=== PATIENT | male | born 1985 | race Caucasian/White ===

== ENCOUNTER 2016-09-11 18:52 | Emergency (ER) | payer OTHER ==
--- NOTE | ~2016-09-11 | CT4 ---
[facility] A Service of [facility] RADIOLOGY TEXT RESULTS PATIENT: KAMRAN SAMAYOA LOCATION: [facility] : 81 UNIT #: [id number] AGE: [address]: STIVEN MOREIRA APRN SEX: M ORDER DR: [id number] [facility] [address] [place], [place] [address] [id number] E MR#: [id number] Acc #: [id number] NAME: KAMRAN SAMAYOA : 1985 SEX: M STUDY DATE/TIME: 09/11/2016 20:24 UNIT: [facility] ROOM: STUDY DESCRIPTION: CT Abd and Pelv Wo Cont Attending Physician: Stiven Moreira Aprn Ordering Physician: Stiven Moreira Aprn Primary Care Physician: Primary Care Physician No MEDICAL IMAGING REPORT This report is preliminary unless electronic signature is present EXAM CT abdomen and pelvis without contrast HISTORY 30-year-old male, left-sided flank pain, nausea, vomiting, started today. FINDINGS Axial images performed through the abdomen and pelvis without contrast. Multiplanar reconstructed images reviewed at a workstation. This CT exam was performed with one or more of the following radiation dose reduction techniques: Automatic exposure control, adjustment of mA and/or kV according to patient size, and iterative reconstruction. Lung bases unremarkable except for small amount of atelectasis. Liver, spleen, gallbladder, pancreas and adrenal glands unremarkable. There is mild left-sided hydronephrosis and hydroureter with a less than 3-mm left UVJ stone. Visualized GI tract to include the appendix unremarkable. PELVIS: Bladder and prostate unremarkable. Osseous structures, soft tissues appear normal. IMPRESSION Less than a 3-mm left UVJ stone with mild left-sided hydronephrosis and hydroureter. Dictated by... Teresa Norris M.D. THIS IS AN ELECTRONICALLY VERIFIED REPORT Teresa Norris M.D. at 09/12/2016 2:47 PM JB/avel [facility] A Service of [facility] RADIOLOGY TEXT RESULTS PATIENT: KAMRAN SAMAYOA LOCATION: [facility] : 81 UNIT #: [id number] AGE: [address]: STIVEN MOREIRA APRN SEX: M ORDER DR: TD: 09/11/2016 20:50 JOB #: [id number] MEDICAL IMAGING REPORT Page 1 of 1 COPY
[2016-09-11 20:38] LABS: URINE APPEARANCE CLEAR; URINE BILIRUBIN NEG (NEG); URINE BLOOD 3+ (NEG); URINE COLOR YELLOW; URINE GLUCOSE NEG (NEG); URINE KETONE TRACE (NEG); URINE LEUKOCYTE ESTERASE NEG (NEG); URINE NITRATE NEG (NEG); URINE PH 5.5 (5-8); URINE PROTEIN 2+ (NEG); URINE SPECIFIC GRAVITY 1.025 (1.003-1.035)
[2016-09-11 20:41] LABS: CULTURE INDICATED? NO; URBCS1 AUWI 100-200 /[HPF] (0-2); URINE BACTERIA AUWI NEG (NEGATIVE); URINE SQUAMOUS EPITHELIAL CELL NONE SEEN /[HPF]; UWBCS1 AUWI 0-2 (0-5)
[2016-09-11 21:02] LABS: BUN/CREATININE RATIO 10.76; CALCIUM SERUM 9.4 mg/dL (8.4-10.2); CREATININE SERUM 1.3 mg/dL (0.6-1.4); GLOM FILT RATE Estimated 72.2 mL/min (>60); POTASSIUM 4.4 mmol/L (3.5-5.1)
== END 2016-09-11 22:09 | disposition home or self-care (01) ==
LOC: CFTX 18:52 → CED 18:52 → CFTX 20:06
PROVIDERS: Nurse Practitioner Family
DX: N13.2 Hydronephrosis with renal and ureteral calculous obstruction (principal); F17.210 Nicotine dependence, cigarettes, uncomplicated
CPT/HCPCS: 36415; 74176; 80048; 81003; 99284